=== PATIENT | female | born 2000 | race African-American/Black ===

== ENCOUNTER 2021-02-09 12:41 | Emergency (ER) | payer OTHER ==
--- OUTSIDE RECORDS SUMMARY | 2021-02-09 12:44 | XMS REPORT | Continuity of Care Document ---
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 13.1 cm with largest pocket measuring 5.1 cm. Cervix is closed measuring 3.3 cm in length. BIOPHYSICAL PROFILE: breathing 2 movement 2 tone 2 Amniotic fluid 2 Total 8/8 IMPRESSION: Nuchal cord. biophysical profile score 8/8. ElectronicallySigned by Scottie Carrasco MD on 01/19/2019 at 1637 Reported and signed by: Scottie Carrasco MD CC: Malathi Arias MD Technologist: Deneen Lea Transcrpt Date/Tm/Trnsp: 01/19/2019 ([id number]) [email or web address] Orig Print D/T: S: 01/19/2019 ([id number]) [facility] NAME: AYAAN MCCULLOUGH [id number] PHYS: [place] [address] : 2000 AGE: 18 SEX: F LOC: Z.JEFF PHONE #: [phone] EXAM DATE: 01/19/2019 STATUS: REG ER FAX #: [phone] RADIOLOGY NO: PAGE 1 Signed ReportAMNISURE (ROM) [id number] 14:55:00 Test Item Value Reference Range Interpretation Comments AMNISURE (ROM) TEST (test code = NON-RUPTURED NON-RUPTURE AMNI)
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
[2021-02-09] MEDS ORDERED: ACETAMINOPHEN 500 MG TAB ONE (13:26)
[2021-02-09 13:29] VITALS: BP 141/98; O2SAT 100
== END 2021-02-09 13:17 | disposition home or self-care (01) ==
LOC: ER 12:41
DX: S39.012A Strain of muscle, fascia and tendon of lower back, initial encounter (principal); V49.49XA Driver injured in collision with other motor vehicles in traffic accident, initial encounter
CPT/HCPCS: 99283